=== PATIENT | male | born 1945 | race Caucasian/White ===

== ENCOUNTER → 2017-08-06 | Outpatient (CLI) | payer MEDICARE ==
[~2017-08-06] MED LIST: ASPI325T PO; CLON0.3T PO; FLON0.053; GABA100C4 PO; LANTUS2P SC; LISI-360 PO; LISI-363 PO; LORTA5 PO; MULTTAB26 PO; TERA5CAP3 PO; VITA-13 PO; Z.0.WALKERFRONT; ZYRT10TA12 PO; [UNRECOGNIZED DRUG - CODE] SL
[2017-08-06 10:01] LABS: AUTOMATED NEUTROPHIL # 3.8 TH/MM3 (1.8-7.7); BASOPHIL % 0.7 % (0.0-2.0); EOSINOPHIL # 0.4 TH/MM3 (0-0.4); EOSINOPHIL % 6.1 % (0.0-4.0); HEMO FLAGS DIFF FINAL; LYMPH % 27.7 % (9.0-44.0); LYMPHOCYTE # 1.8 TH/MM3 (1.0-4.8); MEAN CELL VOLUME 91.3 FL (80.0-100.0); MEAN CORPUSCULAR HEMOGLOBIN 31.7 PG (27.0-34.0); MEAN CORPUSCULAR HGB CONC 34.7 % (32.0-36.0); MONO % 7.9 % (0.0-8.0); NEUT % 57.6 % (16.0-70.0); PLATELET COUNT 207 TH/MM3 (150-450); RED CELL DISTRIBUTION WIDTH 12.8 % (11.6-17.2); WHITE BLOOD COUNT 6.6 TH/MM3 (4.0-11.0)
[2017-08-06 10:29] LABS: ALT (GPT) 51 U/L (12-78); ANION GAP 4 MEQ/L (5-15); AST (GOT) 24 U/L (15-37); BICARBONATE 28.4 MEQ/L (21.0-32.0); BLOOD UREA NITROGEN 27 MG/DL (7-18); CHLORIDE 109 MEQ/L (98-107); GLOMERULAR FILTRATION RATE 91 ML/MIN (>89); GLUCOSE,FASTING 109 MG/DL (74-99); MAGNESIUM 2.3 MG/DL (1.5-2.5); SODIUM (NA) 141 MEQ/L (136-145)
[2017-08-06 10:55] LABS: ALKALINE PHOSPHATASE 86 U/L (45-117); FERRITIN 57 NG/ML (26-388); TOTAL BILIRUBIN ADULT 0.9 MG/DL (0.2-1.0); TRANSFERRIN IRON PROFILE 223 MG/DL (200-360)
[2017-08-06 15:55] LABS: HEMOGLOBIN A1b 1.7 %; HEMOGLOBIN Ao 84.5 %; HEMOGLOBIN LA1C 2.2 %; HEMOGLOBIN P3 4.2 %
== END ==
LOC: CLAB 09:26
PROVIDERS: ATTEND Nurse Practitioner
DX: K21.9 Gastro-esophageal reflux disease without esophagitis (principal); E66.9 Obesity, unspecified; E11.9 Type 2 diabetes mellitus without complications; E03.9 Hypothyroidism, unspecified; Z98.84 Bariatric surgery status
CPT/HCPCS: 36415; 80053; 82607; 82728; 82746; 83036; 83540; 83550; 83735; 83970; 84100; 84443; 84590; 85025

== ENCOUNTER → 2017-08-12 | Outpatient (CLI) | payer MEDICARE | LOC: CLAB 08:56 | PROVIDERS: ATTEND Nurse Practitioner | DX: E34.9 Endocrine disorder, unspecified (principal) | CPT/HCPCS: 36415; 82310; 82565; 83970; 84520 ==